=== PATIENT | female | born 1935 | race Caucasian/White ===

== ENCOUNTER 2016-06-10 11:24 | Inpatient (IN) | payer MEDICARE, OTHER ==
[~2016-06-10] VITALS: Ht 160 cm; Wt 45.0 kg
[2016-06-10 11:36] VITALS: BP 120/51
--- NOTE | 2016-06-10 12:00 | NUR ---
Patient arrives to room 318 via wheelchair. Assisted to bed with 1 assist. Patient appears drowsy and lethargic. Alert but does answer some questions inappropriately. at bedside and conveys accurate history. Patient reports generalized lower back pain rated 3/10 on pain scale. See admission for full assessment.
[2016-06-10] MEDS ORDERED: ONDANSETRON 2 MG/ML (Z0FRAN) 2 ML VIAL IV PRN (12:25)
--- NOTE | 2016-06-10 12:31 | NUR ---
22g IV initiated into left forearm on second attempt by this nurse. Patient tolerates well. Flushes without redness or swelling.
[2016-06-10 12:49] VITALS: BP 120/51
[2016-06-10 12:50] LABS: BILIRUBIN,URINE Negative (Negative); COLOR,URINE Yellow; GLUCOSE, URINE (UA) Negative (Negative); LEUKOCYTE ESTERASE ,URINE Negative (Negative); UROBILINOGEN,URINE 0.2 mg/dL (0.2-1.0)
[2016-06-10 13:04] LABS: CLARITY,URINE Slightly Cloudy; PH,URINE >9.0 (5.0 - 8.0)
[2016-06-10 13:05] LABS: URINE CENTRIFUGED VOLUME 12 mL
[2016-06-10 13:19] LABS: MEAN CORPUSCULAR HEMOGLOBIN 30.4 PG (26.0-34.0); MEAN CORPUSCULAR HGB CONC 34.1 g/dL (31.0-37.0); MEAN CORPUSCULAR VOLUME 89 FL (80-100); PLATELET COUNT 264 10^3uL (150-450); WHITE BLOOD COUNT 10.54 10^3uL (4.0-11.0)
[2016-06-10 13:20] LABS: ALBUMIN 3.6 g/dL (3.4-5.0); ANION GAP 9.3 MEQ/L (3-15); CALCULATED IONIZED CALCIUM 4.1 mg/dL (3.8-4.6); MAGNESIUM* 1.6 mg/dL (1.6-2.3); TOTAL PROTEIN 6.2 g/dL (6.4-8.5)
[2016-06-10] MEDS: cefTRIAXone SODIUM 1,000 MG in SODIUM CHLORIDE 50 ML IV SCH (13:22)
[2016-06-10 13:40] LABS: BAND NEUTROPHILS % 0 % (0-6); EOSINOPHILS % 0 % (0-4); LYMPHOCYTES # 0.3 #; MONOCYTES # 0.6 #; MONOCYTES % 6 % (3-11); SEGMENTED NEUTROPHILS % 91 % (51-67); TOTAL CELLS COUNTED 100
[2016-06-10 13:41] LABS: RBC MORPH NORMAL (NORMAL)
[2016-06-10 15:19] VITALS: BP 118/55
[2016-06-10] MEDS ORDERED: NS FLUSH 10 ML PRN IV (15:35)
[2016-06-10] MEDS ORDERED: NS FLUSH 3 ML PRN IV (15:35)
[2016-06-10] MEDS ORDERED: POTASSIUM CHLORIDE ORAL SOLUTION 20 MEQ/15 ML (KCL) UDC PO ONE (17:10)
--- NOTE | 2016-06-10 17:30 | NUR ---
MED REC COMPLETED-current med list obtained from PCP medication listing and retail pharmacy. Still need to follow up on additional information about Diltiazem. Will contact dr's office tomorrow to see if any additional information to confirm dosing. Med rec conducted by Zita Hawk PharmD Candidate 2017. Addendum: 06/12/16 at 1253 by Bethanie Lyman PHARM Followed up on Diltiazem home medication. No record of patient taking this med. Will remove it from her home med listing.
[2016-06-10] MEDS ORDERED: HYDROcodone/APAP 5 MG/325 MG (NORCO) TAB PO PRN (17:55)
--- NOTE | 2016-06-10 18:17 | NUR ---
UMANG Sullivan provided for c/o headache rated 8/10 on pain scale. Patient sitting up in bed. Alert and oriented to person, place, and time. States "boy I feel better than when I got her". Yellow gown and TABS remain intact for safety. Call light in reach.
[2016-06-10] MEDS: DONEPEZIL 5 MG (ARICEPT) TAB PO SCH (20:21)
[2016-06-10] MEDS: ATORVASTATIN 10 MG (LIPITOR) TABLET PO SCH (20:21)
[2016-06-10] MEDS: CALCIUM CARBONATE CHEWABLE 300 MG (TUMS) TABLET PO SCH (20:21)
[2016-06-10] MEDS: FAMOTIDINE 20 MG (PEPCID) TABLET PO SCH (20:21)
[2016-06-10] MEDS ORDERED: CALCIUM CARBONATE 1177 MG PO SCH (21:00)
[2016-06-10] MEDS ORDERED: NON-FORMULARY MEDICATION 1 EA EA (Ranitidine HCl (Zantac) 150 MG) PO SCH (21:00)
--- NOTE | 2016-06-10 23:35 | NUR ---
IVF fully infused; saline lock secure; pt. resting on right side; ready to go back to sleep. Pt. denies discomfort. Call light and H2O within reach.
[2016-06-11 00:10] VITALS: BP_SYST 131; BP_SYST 94; BP_DIAS 48; BP_DIAS 76
[2016-06-11] MEDS: HYDROcodone/APAP 5 MG/325 MG (NORCO) TAB PO PRN ×2 (00:25→18:42)
--- NOTE | 2016-06-11 00:25 | NUR ---
Laurie 5 / one half given to pt. for head and neck pain rated "4". Pt. ambulates to bathroom using walker with stand by assist; pt. noted to be unsteady yet. Call light and H2O within reach after returning to bed; pt. is very pleasant and cooperative. Pt. wearing yellow gown/socks.
--- NOTE | 2016-06-11 04:10 | NUR ---
Pt. resting quietly with eyes closed; appears to be in no distress. Yellow gown/socks applied for Fall Risk; bed alarm on for safety. H2O and call light within reach.
[2016-06-11 06:29] LABS: BASOPHILS % (AUTO) 0 % (0-2); EOSINOPHILS # (AUTO) 0.1 10^3uL; EOSINOPHILS % (AUTO) 3 % (0-4); MEAN CORPUSCULAR HGB CONC 33.9 g/dL (31.0-37.0); MEAN CORPUSCULAR VOLUME 92 FL (80-100); MEAN PLATELET VOLUME 9.8 FL (6.0-9.5); MONOCYTES # (AUTO) 0.7 X10^3; MONOCYTES % (AUTO) 15 % (3-11); NEUTROPHILS # (AUTO) 2.7 X10^3; NEUTROPHILS % (AUTO) 60 % (51-67); PLATELET COUNT 259 10^3uL (150-450); WHITE BLOOD COUNT 4.53 10^3uL (4.0-11.0)
[2016-06-11 06:46] LABS: ALBUMIN 2.9 g/dL (3.4-5.0); ANION GAP 6.1 MEQ/L (3-15); PHOSPHORUS 2.7 mg/dL (2.4-4.9)
--- NOTE | 2016-06-11 06:50 | NUR ---
Pt. had an uneventful shift; slept in long intervals; called for stand by assist when ambulating to and fro bathroom with use of walker; slight unsteadiness noted with gait. Pt. remains afebrile; no cough/nausea. SATS were 94-99% on room air throughout the shift. Pt. currently denies discomfort; pleasant and cooperative. Pt. remains pleasantly confused. Call light and H2O within reach.
[2016-06-11 07:34] VITALS: BP 120/72
[2016-06-11] MEDS: CALCIUM CARBONATE CHEWABLE 300 MG (TUMS) TABLET PO SCH ×2 (08:47→20:56)
[2016-06-11] MEDS: DILTIAZEM CD 120 MG (CARDIZEM CD) CAP PO SCH (08:48)
[2016-06-11] MEDS: FAMOTIDINE 20 MG (PEPCID) TABLET PO SCH ×2 (08:48→20:56)
[2016-06-11] MEDS: CHOLECALCIFEROL 1000 INT UNITS (VITAMIN D3) TABLET PO SCH (08:48)
[2016-06-11] MEDS: CITALOPRAM 40 MG (CELEXA) TABLET PO SCH (08:48)
[2016-06-11] MEDS: ESTROGENS CONJ 0.3 MG PO SCH (08:48)
[2016-06-11] MEDS: FLUTICASONE NASAL 50 MCG/SPRAY (FLONASE) 16 GM BTL NS SCH (08:51)
[2016-06-11] MEDS: ENOXAPARIN 30 MG/0.3 ML (LOVENOX) SYR SC SCH (08:54)
[2016-06-11] MEDS: NS FLUSH 3 ML DAILY IV SCH (08:56)
[2016-06-11] MEDS ORDERED: ATORVASTATIN CALCIUM 20 MG PO SCH (09:00)
--- NOTE | 2016-06-11 12:21 | NUR ---
MULTIDISCIPLINARY MTG/DR. HUIZAR: Pt. remains very confused. Pt. and her have been declining and are both confused. Dr. Huizar to discuss with them about planning for alternative living arrangements. Pt. seems to be improving. Pt. to possibly discharge tomorrow. No discharge needs identified at this time.
[2016-06-11] MEDS: cefTRIAXone SODIUM 1,000 MG in SODIUM CHLORIDE 50 ML IV SCH (13:20)
--- NOTE | 2016-06-11 14:59 | NUR ---
NUTRITION ASSESSMENT Level 1 Patient: Meme Acuna Age/Sex: 80/F Date Screened: 06-11-16 Weight: 100.5#/45.7 kg Height: 63 inches Primary Diagnosis: sepsis, pyelonephritis Diet Order: regular Relevant labs: glucose 86, potassium 3.9, magnesium 2.0, phosphorus 2.7 Food allergies: N Nutrition Assessment Criteria Age over 80: 4 points Body Mass Index (BMI) under 19: 6 points Admission Screening Indicates Risk? 3 points Moderate/High Risk Diagnosis: 3 points TPN or PPN: N NPO or clear liquid diet: N Serum Glucose <70 or >180: N Hgb A1c >6.7: N/A Total: 16 points Risk Screen: __ Patient at low nutritional risk based on available data; reevaluate in 5-7 days __ Patient at moderate nutritional risk based on available data; reevaluate in 3-5 days _X_ Patient at high nutritional risk; complete Nutrition Assessment within 48 hours of admission.
--- NOTE | 2016-06-11 15:40 | NUR ---
NUTRITION ASSESSMENT Level II Patient: Meme Acuna Age/Sex: 80/F Date Assessed: 06-11-16 ASSESSMENT Pertinent History: Patient admitted with sepsis and pyelonephritis and screened at high nutritional risk secondary to low BMI, elderly age and diagnosis. PMHx includes depression, Barretts esophagus, HTN, pain, and dementia. She lives with her at home; noted poor memory/confusion in both of them. She reports poor appetite. Weight history is: 94# in October 2014, and 101# in 2015. Meds/Nutrition: vitamin D, Pepcid Weight: 100.5#/45.7 kg Height: 63 inches Body Mass Index (BMI): 17.8 [place] Body Weight : 115#/52.2 kg % IBW: 87% GASTROINTESTINAL Appetite: stated poor, eating 0-50% (average 20%) Diet Order: regular Unintentional loss of >10 lbs. in 3 months: N Difficult to chew/swallow: N Diabetes: N Relevant Labs: glucose 85, potassium 3.9, magnesium 2.0, phosphorus 2.7 Calculations for Nutritional Assessment Estimated calorie needs: 28-30 kcals/kg = 1,260-1,350 kcals Estimated protein needs: 1.0-1.3 g/kg = 45-58 g./day DIAGNOSIS 1. Nutrition Diagnosis: Inadequate intake related to decreased appetite as evidenced by low BMI, decreased appetite and eating average of 20% since admission. NUTRITIONAL INTERVENTION Goal: Patient will receive adequate nutrition to meet her needs. Plan: Will provide regular diet as ordered and monitor intake for adequacy. I am concerned about patient's nutritional status living at home with her ; her low BMI is concerning for chronically low p.o. intake. Will follow up with physician re: discussion about recommending assisted living after DC. In the meantime, will supplement with Ensure or homemade protein shake with meals for additional kcals/protein. Smaller portions with meals may also be helpful. MONITORING & EVALUATION _X_ Monitor patients menu selections _X_ Monitor patients food intake per nursing notes __ Monitor NPO/clear liquid days __ Monitor lab values __ Monitor I&O __ Other
[2016-06-11 16:15] VITALS: BP 113/54
--- NOTE | 2016-06-11 18:49 | NUR ---
PRN [place] given at this time for c/o WRIGHT and neck ache. Pt has denied pain this shift prior to this. Skin warm, dry, intact. Resprs nonlabored, even on RA. has been here on and off this shift. Pharmacy requested that bring Cardizem medication bottle to hospital to verify dose. to bring this up tomorow. SL intact. Pt denies needs.
[2016-06-11] MEDS: CEFDINIR 300 MG (OMNICEF) CAPSULE PO SCH (20:55)
[2016-06-11] MEDS: DONEPEZIL 5 MG (ARICEPT) TAB PO SCH (20:56)
[2016-06-11] MEDS: ATORVASTATIN 10 MG (LIPITOR) TABLET PO SCH (20:56)
[2016-06-11 23:50] VITALS: BP 126/69
[2016-06-12] MEDS: HYDROcodone/APAP 5 MG/325 MG (NORCO) TAB PO PRN (04:41)
--- NOTE | 2016-06-12 06:16 | NUR ---
Pt rests in long intervals throughout the night. PRN norco given x1 for pt c/o WRIGHT and neck pain. SL intact. Resp even and non labored on RA.
[2016-06-12 06:19] LABS: MEAN CORPUSCULAR HEMOGLOBIN 30.8 PG (26.0-34.0); MEAN CORPUSCULAR HGB CONC 33.8 g/dL (31.0-37.0); MEAN CORPUSCULAR VOLUME 91 FL (80-100); MEAN PLATELET VOLUME 10.3 FL (6.0-9.5); PLATELET COUNT 253 10^3uL (150-450); WHITE BLOOD COUNT 4.17 10^3uL (4.0-11.0)
[2016-06-12 06:29] LABS: ALBUMIN 3.1 g/dL (3.4-5.0); ANION GAP 7.7 MEQ/L (3-15); MAGNESIUM* 1.7 mg/dL (1.6-2.3); PHOSPHORUS 3.7 mg/dL (2.4-4.9)
[2016-06-12 07:21] LABS: BAND NEUTROPHILS % 0 % (0-6); EOSINOPHILS % 8 % (0-4); LYMPHOCYTES # 0.9 #; MONOCYTES # 0.6 #; MONOCYTES % 15 % (3-11); RBC MORPH NORMAL (NORMAL); SEGMENTED NEUTROPHILS % 52 % (51-67); TOTAL CELLS COUNTED 100
[2016-06-12 08:16] VITALS: BP 123/69
[2016-06-12] MEDS ORDERED: ACETAMINOPHEN 325 MG TAB (TYLENOL) PO PRN (08:20)
[2016-06-12] MEDS ORDERED: NON-FORMULARY MEDICATION 1 EA EA (Ibuprofen 400 MG) PO PRN (08:20)
[2016-06-12] MEDS: CEFDINIR 300 MG (OMNICEF) CAPSULE PO SCH (08:22)
[2016-06-12] MEDS: CHOLECALCIFEROL 1000 INT UNITS (VITAMIN D3) TABLET PO SCH (08:23)
[2016-06-12] MEDS: DILTIAZEM CD 120 MG (CARDIZEM CD) CAP PO SCH ×2 (08:23→09:00)
[2016-06-12] MEDS: ESTROGENS CONJ 0.3 MG PO SCH (08:23)
[2016-06-12] MEDS: CITALOPRAM 40 MG (CELEXA) TABLET PO SCH (08:23)
[2016-06-12] MEDS: CALCIUM CARBONATE CHEWABLE 300 MG (TUMS) TABLET PO SCH (08:23)
[2016-06-12] MEDS: FAMOTIDINE 20 MG (PEPCID) TABLET PO SCH (08:23)
--- NOTE | 2016-06-12 08:23 | NUR ---
PRN Tylenol given at this time for c/o WRIGHT and neck ache. Pt states she thinks she slept wrong in the bed. Skin warm, dry, intact. Resprs nonlabored, even on RA. Up ad ella in room. at bedside. Denies needs.
[2016-06-12] MEDS: FLUTICASONE NASAL 50 MCG/SPRAY (FLONASE) 16 GM BTL NS SCH (08:31)
[2016-06-12] MEDS: ENOXAPARIN 30 MG/0.3 ML (LOVENOX) SYR SC SCH (08:32)
[2016-06-12] MEDS ORDERED: IBUPROFEN 400 MG (MOTRIN) TABLET PO PRN (09:05)
[2016-06-12] MEDS: NS FLUSH 3 ML DAILY IV SCH (09:07)
--- NOTE | 2016-06-12 13:20 | NUR ---
Discharge instructions reviewed with patient and , both demonstrate understanding. Questions answered. Pharmacy reviewed new medication with patient and . SL removed with catheter tip intact. Belongings gathered. Pt dismissed at this time via w/c accompanied by and AGUSTINA Snyder. Pt and both very appreciative of cares.
== END 2016-06-12 13:20 | disposition home or self-care (01) | DRG 872 ==
LOC: MED/SURG 11:24 → UNDOADMIN 11:24 → MED/SURG 11:31
PROVIDERS: ADMIT Family Medicine; ATTEND Family Medicine
DX: A41.9 Sepsis, unspecified organism (principal); N39.0 Urinary tract infection, site not specified; Z66 Do not resuscitate; E78.5 Hyperlipidemia, unspecified; K22.70 Barrett's esophagus without dysplasia; I10 Essential (primary) hypertension; F03.90 Unspecified dementia, unspecified severity, without behavioral disturbance, psychotic disturbance, mood disturbance, and anxiety; G89.29 Other chronic pain; F32.9 Major depressive disorder, single episode, unspecified
CPT/HCPCS: 36415; 80053; 80069; 81003; 81015; 83735; 84443; 85025; 86140; 87040

== ENCOUNTER → 2016-07-29 | Outpatient (REF) | payer MEDICARE, OTHER ==
[2016-07-29 14:00] LABS: BILIRUBIN,URINE Negative (Negative); CLARITY,URINE Clear; COLOR,URINE Yellow; GLUCOSE, URINE (UA) Negative (Negative); LEUKOCYTE ESTERASE ,URINE Negative (Negative); UROBILINOGEN,URINE 0.2 mg/dL (0.2-1.0)
[2016-07-30 09:34] LABS: URINE CENTRIFUGED VOLUME 12 mL
== END ==
LOC: LAB 12:53
PROVIDERS: ATTEND Family Medicine
DX: R50.9 Fever, unspecified (principal)
CPT/HCPCS: 81003; 81015

== ENCOUNTER → 2016-07-29 | Outpatient (CLI) | payer MEDICARE, OTHER | LOC: RAD 12:16 | PROVIDERS: ATTEND Family Medicine | DX: R05 Cough (principal) | CPT/HCPCS: 71020 ==

== ENCOUNTER → 2016-07-30 | Emergency (ER) | payer MEDICARE, OTHER ==
[~2016-07-30] VITALS: Ht 160 cm; Wt 45.0 kg
[~2016-07-30] MED LIST: ALBUTEROL 0.083% NEB SOLUTION 2.5 MG/3 ML VIAL INH ONE; ONDANSETRON 2 MG/ML (Z0FRAN) 2 ML VIAL IV ONE; SODIUM CHLORIDE FLUSH 10 ML SYR IV PRN; methylPREDNISolone 125 MG (Solu-MEDROL) VIAL IV ONE
--- NOTE | 2016-07-30 18:55 | NUR ---
Patient and family do not know meds. Did not bring meds or a list.
[2016-07-30 19:24] LABS: BASOPHILS % (AUTO) 0 % (0-2); EOSINOPHILS % (AUTO) 0 % (0-4); MEAN CORPUSCULAR HEMOGLOBIN 30.1 PG (26.0-34.0); MEAN CORPUSCULAR HGB CONC 33.4 g/dL (31.0-37.0); MEAN CORPUSCULAR VOLUME 90 FL (80-100); MONOCYTES # (AUTO) 0.6 X10^3; MONOCYTES % (AUTO) 13 % (3-11); NEUTROPHILS # (AUTO) 3.3 X10^3; NEUTROPHILS % (AUTO) 67 % (51-67); PLATELET COUNT 240 10^3uL (150-450); WHITE BLOOD COUNT 4.96 10^3uL (4.0-11.0)
[2016-07-30 19:32] LABS: ALBUMIN 3.5 g/dL (3.4-5.0); ANION GAP 10.7 MEQ/L (3-15); CALCULATED IONIZED CALCIUM 3.9 mg/dL (3.8-4.6); TOTAL PROTEIN 6.2 g/dL (6.4-8.5)
[2016-07-30 20:26] LABS: BILIRUBIN,URINE Negative (Negative); CLARITY,URINE Clear; COLOR,URINE Yellow; GLUCOSE, URINE (UA) Negative (Negative); LEUKOCYTE ESTERASE ,URINE Negative (Negative); UROBILINOGEN,URINE 0.2 mg/dL (0.2-1.0)
[2016-07-30 20:33] LABS: URINE CENTRIFUGED VOLUME 12 mL
[2016-07-30 21:32] VITALS: BP 118/41
== END | disposition home or self-care (01) ==
LOC: ED 18:37
DX: J11.1 Influenza due to unidentified influenza virus with other respiratory manifestations (principal)
CPT/HCPCS: 36415; 71010; 80053; 81003; 81015; 83605; 85025; 86140; 87040; 87070; 87205; 87486; 87581; 87633; 87798; 94640; 96361; 96374; 96375; 99284; J2405; J2930; J7030; 99283

== ENCOUNTER 2016-10-04 07:04 | Emergency (ER) | payer MEDICARE, OTHER ==
[~2016-10-04] VITALS: Ht 160 cm; Wt 45.0 kg
[~2016-10-04 07:04] MED LIST changes: +ACDPT PO; +AGM500T PO; +ALB0.5V INH; -ALBUTEROL 0.083% NEB SOLUTION 2.5 MG/3 ML VIAL INH ONE; +ALPR0.25 PO; +ATOR20TA PO; +ATOR20TA54 PO; +CALC-719 PO; +CALC117719 PO; +CALC500T7 PO; +CEFD300C PO; +CHOL10002 PO; +CITA10SO4 PO; +CITA40TA19 PO; +CTLP20T PO; +CYCL10TA45 PO; +DILT120T3 PO; +DONE5TAB4 PO; +ESTR0.3T PO; +ESTROGCO.3 PO; +FLUT16SP NSEACH; +GLUC-113 PO; +HYDR-3702 PO; +IBUP200C PO; +METH4TAB27 PO; +MINO100C2 PO; +MIRT15TA PO; +NF-FLON16G; +OMEG-9 PO; +OMEP20TA PO; +ONDA4TAB8 PO; +ONDAN4ODT PO; -ONDANSETRON 2 MG/ML (Z0FRAN) 2 ML VIAL IV ONE; +PRD20T PO; +PRED10TA PO; +RANI150T15 PO; -SODIUM CHLORIDE FLUSH 10 ML SYR IV PRN; +VITA1TAB78 PO; -methylPREDNISolone 125 MG (Solu-MEDROL) VIAL IV ONE
--- OUTSIDE RECORDS SUMMARY | 2016-10-04 07:12 | XMS REPORT | Continuity of Care Document ---
Author Author [facility] Organization [facility] Address Unknown Phone Unavailable Care Team Providers Care Biztalk Developer Name Role Phone KATINA BAL MD PCP [phone] Insurance Providers Payer Name Policy Number Subscriber Name Relationship Medicare A And B [id number] William Acuna 17 Self / Same As Patient [facility] [id number] Juana Acuna 01 Problems Medical Problems Problem Onset Date Status EGD 02/05/2012 Active Nausea and vomiting 06/14/2012 Resolved Fall on same level from slipping, tripping or stumbling ~08/22/2013 Resolved Injury of head ~08/22/2013 Resolved Pain in shoulder region ~01/18/2014 Active Jenkins's esophagus Unknown Active Medications Medication Dose Route Sig Days/Qty Instructions Order Date Discontinued Date Status Diltiazem Hcl 120 Mg ORAL DAILY 02/05/12 Active Omeprazole 20 Mg ORAL DAILY 02/05/12 08/07/14 Discontinued Citalopram Hydrobromide 20 Mg ORAL DAILY 02/05/12 08/07/14 Discontinued Atorvastatin 20 Mg ORAL DAILY 02/05/12 08/22/13 Discontinued [place]-3/Dha/Epa/Fish Oil 1 Each ORAL DAILY 02/05/12 08/22/13 Discontinued Vitamin D3/Menaquinone 7 1 Each ORAL 02/05/12 Active Calcium Carbonate 200 Mg ORAL FOUR TIMES DAILY 02/05/12 08/22/13 Discontinued Estrogens,Conjugated 0.3 Mg ORAL DAILY 02/05/12 Active Gluc 2KCL/Chondr/[place] Hy/Hy Ac 1 Each ORAL THREE TIMES A DAY Active Amoxicillin/Clavulanate K 500 Mg ORAL TWICE A DAY 7 Days 02/08/1209/19 Discontinued Ondansetron 4 Mg ORAL THREE TIMES A DAY PRN 9 Qty 02/08/12 06/14/12 Discontinued Ondansetron Hcl 1 - 2 Tab ORAL EVERY 6 HOURS PRN 12 Qty 06/14/1208/22 Discontinued Acetaminophen/Hydrocodone Bitart 1 Each ORAL EVERY 4HRS PRN PAIN 15 Qty 08/22/13 01/21/14 Discontinued Minocycline Hcl 100 Mg ORAL TWICE A DAY 01/21/14 01/30/14 Discontinued Calcium Carbonate 750 Mg ORAL TWICE A DAY 01/21/14 08/07/14 Discontinued Acetaminophen/Diphenhydramine 1 Ea ORAL NEEDED 01/21/14 Active Methylprednisolone 21 Tab ORAL as directed 1 Qty 01/21/14 08/07/14 Discontinued Alprazolam 0.25 Mg ORAL THREE TIMES A DAY 12 Qty 01/21/14 01/30/14 Discontinued Atorvastatin Calcium 20 Mg ORAL DAILY 08/07/14 Active Fluticasone Propionate 16 Gm NASAL DAILY 08/07/14 Active Mirtazapine 15 Mg ORAL BEDTIME 08/07/14 Active Ranitidine Hcl 150 Mg ORAL TWICE A DAY 08/07/14 Active Social History No social history. Hospital Discharge Instructions No hospital discharge instructions. Plan of Care No plan of care. Functional Status No functional status results. Allergies, Adverse Reactions, Alerts Allergen Type Severity Reaction Status Last Updated mirtazapine Allergy Unknown Active 08/07/14 Immunizations No immunization records. Vital Signs Acute Vital Signs Vital Response Date/Time Temperature (Fahrenheit) 97.9 Pulse 91 bpm Respirations 20 Height 5 ft 2 in Weight 95 lb Body Mass Index 17.4 kg/m^2 Results Test Source Date Result Interp. Ref. Range Comments Alanine Aminotransferase (ALT/SGPT) January 21, 2014 9:47pm 33 U/L N 30-65 Albumin January 21, 2014 9:47pm 3.3 G/DL L 3.4-5.0 Albumin/Globulin Ratio January 21, 2014 9:47pm 1.269 N 1.1-1.8 Alkaline Phosphatase January 21, 2014 9:47pm 96 U/L N 38-126 Anion Gap January 21, 2014 9:47pm 11.4 MEQ/L N 3-15 Aspartate Amino Transf (AST/SGOT) January 21, 2014 9:47pm 28 U/L N 15- 37 BUN/Creatinine Ratio January 21, 2014 9:47pm 30 H 10-20 Band Neutrophils % February 09, 2012 9:37am 3 % N 0-6 Basophils # (Auto) January 21, 2014 9:47pm 0.0 10^3uL Basophils (%) (Auto) January 21, 2014 9:47pm 0 % N 0-2 Blood Urea Nitrogen January 21, 2014 9:47pm 18 MG/DL N 7-18 C-Reactive Protein February 08, 2012 7:00pm < 0.50 MG/DL 0.0-0.9 Calcium Level January 21, 2014 9:47pm 8.9 MG/DL N 8.8-10.8 Calculated Osmolality January 21, 2014 9:47pm 269 MOSM/L L 280-300 Carbon Dioxide Level January 21, 2014 9:47pm 27 MMOL/L N 22-29 Chloride Level January 21, 2014 9:47pm 104 mmol/L N 98-108 Cholesterol Level August 03, 2013 7:40am 168 mg/dL 0-199 Creatine Kinase MB January 21, 2014 9:47pm 1.1 NG/ML N 0.0-6.0 Creatinine January 21, 2014 9:47pm 0.60 mg/dL N 0.6-1.2 Differential Total Cells Counted February 09, 2012 9:37am 100 Direct Bilirubin November 06, 2011 7:35am 0.1 MG/DL N 0.0-0.4 Eosinophils # (Auto) January 21, 2014 9:47pm 0.5 10^3uL Eosinophils (%) (Auto) January 21, 2014 9:47pm 5 % H 0-4 Erythrocyte Sedimentation Rate January 21, 2014 9:47pm 31 mm/hr H 0- 23 Glucose Level January 21, 2014 9:47pm 115 mg/dL DH 70-110 HDL Cholesterol August 03, 2013 7:40am 63 mg/dL 40-84 Hematocrit July 31, 2014 4:30pm 39.60 % N 35.00-45.00 Hemoglobin July 31, 2014 4:30pm 13.4 g/dL N 12.0-15.5 Indirect Bilirubin November 06, 2011 7:35am 0.4 MG/DL N 0.0-0.60 Influenza Virus Type A Antibody May 08, 2014 11:10am Negative Influenza Virus Type B Antibody May 08, 2014 11:10am Negative LDL Cholesterol, Calculated August 03, 2013 7:40am 74 mg/dL 0-130 Lymphocytes # (Auto) January 21, 2014 9:47pm 0.9 X10^3 Lymphocytes % February 09, 2012 9:37am 15 % L 16-34 Lymphocytes (%) (Auto) January 21, 2014 9:47pm 10 % L 20-46 Mean Corpuscular Hemoglobin July 31, 2014 4:30pm 30.7 PG N 26.0-34.0 Mean Corpuscular Hemoglobin Concent July 31, 2014 4:30pm 33.8 g/dL N 31.0-37.0 Mean Corpuscular Volume July 31, 2014 4:30pm 91 FL N 80-100 Mean Platelet Volume July 31, 2014 4:30pm 9.9 FL H 6.0-9.5 Monocytes # (Auto) January 21, 2014 9:47pm 1.0 X10^3 Monocytes % February 09, 2012 9:37am 3 % N 2-12 Monocytes (%) (Auto) January 21, 2014 9:47pm 11 % N 3-11 Neutrophils # (Auto) January 21, 2014 9:47pm 6.8 X10^3 Neutrophils (%) (Auto) January 21, 2014 9:47pm 74 % H 51-67 Platelet Count July 31, 2014 4:30pm 291 10^3uL N 150-450 Potassium Level January 21, 2014 9:47pm 4.7 mmol/L N 3.5-5.1 Red Blood Count July 31, 2014 4:30pm 4.36 10^6uL N 4.00-5.00 Red Cell Distribution Width July 31, 2014 4:30pm 13.3 % N 11.8-15.6 Segmented Neutrophils % February 09, 2012 9:37am 79 % H 50-70 Sodium Level January 21, 2014 9:47pm 138 MMOL/L N 135-150 Thyroid Stimulating Hormone (TSH) May 01, 2014 12:15pm 1.95 UIU/ML DN 0.46-4.68 Total Bilirubin January 21, 2014 9:47pm 0.2 MG/DL DN 0.1-1.0 Total Creatine Kinase January 21, 2014 9:47pm 52 U/L N 30-135 Total Protein January 21, 2014 9:47pm 5.9 G/DL L 6.4-8.5 Triglycerides Level August 03, 2013 7:40am 153 mg/dL H 0-149 Troponin I January 21, 2014 9:47pm < 0.012 ng/mL 0.010-0.080 Urine Bacteria February 08, 2012 7:00pm None seen /HPF Urine Bilirubin February 08, 2012 7:00pm Negative Negative Urine Clarity February 08, 2012 7:00pm Clear Urine Color February 08, 2012 7:00pm Yellow Urine Glucose (UA) February 08, 2012 7:00pm Negative Negative Urine Ketones February 08, 2012 7:00pm Negative Negative Urine Leukocyte Esterase February 08, 2012 7:00pm Negative Negative Urine Nitrite February 08, 2012 7:00pm Negative Negative Urine Protein February 08, 2012 7:00pm Negative Negative Urine RBC February 08, 2012 7:00pm 0-2 /HPF Urine Specific [place] February 08, 2012 7:00pm <=1.005 1.005-1.030 Urine Squamous Epithelial Cells February 08, 2012 7:00pm 2-5 /LPF Urine Urobilinogen February 08, 2012 7:00pm 0.2 mg/dL 0.2-1.0 Urine WBC February 08, 2012 7:00pm None seen /HPF Urine Yeast January 14, 2012 8:13am Rare Urine pH February 08, 2012 7:00pm 6.0 5.0 - 8.0 VLDL Cholesterol August 03, 2013 7:40am 31 mg/dL H 0-28 White Blood Count July 31, 2014 4:30pm 7.18 10^3uL N 4.0-11.0 Estimat Glomerular Filtration Rate January 21, 2014 9:47pm 116.7 Estimated GFR (Non- January 21, 2014 9:47pm 96.4 Urine RBC (Auto) February 08, 2012 7:00pm Trace-intact H Negative Calcium/Ionized Calcium Ratio January 21, 2014 9:47pm 4.00 mg/dL Bacterial Identification Blood-Peripheral February 08, 2012 7:00pm Procedures Procedure Status Date Provider(s) ROUTINE VENIPUNCTURE completed 07/31/14 COMPLETE CBC AUTOMATED completed 07/31/14 Encounters Encounter Location Date/Time Registered Clinic [facility] 07/31/14 4:27pm
[2016-10-04] MEDS ORDERED: SODIUM CHLORIDE FLUSH 3 ML SYR IV PRN (07:55)
[2016-10-04] MEDS ORDERED: SODIUM CHLORIDE FLUSH 10 ML SYR IV PRN (07:55)
[2016-10-04] MEDS ORDERED: diphenhydrAMINE 50 MG/ML INJ (BENADRYL) IV SCH (07:55)
[2016-10-04 08:12] LABS: BASOPHILS % (AUTO) 0 % (0-2); EOSINOPHILS # (AUTO) 0.1 10^3uL; EOSINOPHILS % (AUTO) 1 % (0-4); LYMPHOCYTES # (AUTO) 1.2 X10^3; MEAN CORPUSCULAR HEMOGLOBIN 30.2 PG (26.0-34.0); MEAN CORPUSCULAR VOLUME 89 FL (80-100); MEAN PLATELET VOLUME 10.1 FL (6.0-9.5); MONOCYTES # (AUTO) 0.4 X10^3; MONOCYTES % (AUTO) 7 % (3-11); NEUTROPHILS # (AUTO) 4.9 X10^3; NEUTROPHILS % (AUTO) 74 % (51-67); PLATELET COUNT 305 10^3uL (150-450); WHITE BLOOD COUNT 6.69 10^3uL (4.0-11.0)
[2016-10-04 08:28] LABS: ALBUMIN 3.5 g/dL (3.4-5.0); ANION GAP 10.1 MEQ/L (3-15); CALCULATED IONIZED CALCIUM 4.2 mg/dL (3.8-4.6); TOTAL PROTEIN 6.3 g/dL (6.4-8.5)
[2016-10-04 09:54] LABS: BILIRUBIN,URINE Negative (Negative); CLARITY,URINE Clear; COLOR,URINE Yellow; GLUCOSE, URINE (UA) Negative (Negative); LEUKOCYTE ESTERASE ,URINE Negative (Negative); UROBILINOGEN,URINE 0.2 mg/dL (0.2-1.0)
[2016-10-04 09:55] LABS: PH,URINE >9.0 (5.0 - 8.0)
[2016-10-04 09:56] LABS: URINE CENTRIFUGED VOLUME 10 mL
[2016-10-04 10:03] LABS: RBC,URINE 0-2 /HPF
[2016-10-04] MEDS ORDERED: MECL-105 PO (10:37)
[2016-10-04 11:06] VITALS: BP 112/47
== END 2016-10-04 11:00 | disposition home or self-care (01) ==
LOC: EDUNIT# 07:04 → ED 07:06
DX: H83.01 Labyrinthitis, right ear (principal)
CPT/HCPCS: 36415; 51701; 80053; 81003; 81015; 85025; 96374; 99283; J1200; 99282